=== PATIENT | male | born 1980 | race Caucasian/White ===

== ENCOUNTER → 2023-07-14 | Outpatient (CLI) | payer OTHER ==
[~2023-07-14] MED LIST: AIMOVIG AU70 MG/1 M1 SQ; CYMBALTA 30MG30 MG PO; IMITREX50 MG PO; NO HOME MEDICATIONS; NORCO 325 MG-51 TAB PO; ROXICODONE 55 MG/TAB PO
== END ==
LOC: MHCPAIN 10:15
DX: M54.16 Radiculopathy, lumbar region (principal)

== ENCOUNTER 2023-08-31 08:00 | Outpatient (RCR) | payer OTHER | END 2023-09-04 | disposition home or self-care (01) | LOC: PT.GENESIS | DX: M25.561 Pain in right knee (principal); Z98.890 Other specified postprocedural states ==

== ENCOUNTER 2023-09-28 08:00 | Outpatient (RCR) | payer OTHER | END 2023-10-05 | disposition home or self-care (01) | LOC: PT.GENESIS | DX: M25.561 Pain in right knee (principal); Z98.890 Other specified postprocedural states ==

== ENCOUNTER → 2023-10-20 | Outpatient (CLI) | payer OTHER | LOC: MHCPAIN 07:58 | DX: M47.817 Spondylosis without myelopathy or radiculopathy, lumbosacral region (principal); M54.50 Low back pain, unspecified | CPT/HCPCS: J0665 ==

== ENCOUNTER → 2023-10-24 | Outpatient (CLI) | payer OTHER | LOC: MHCPAIN 10:00 | DX: M47.816 Spondylosis without myelopathy or radiculopathy, lumbar region (principal); M51.26 Other intervertebral disc displacement, lumbar region | CPT/HCPCS: G0463 ==

== ENCOUNTER 2023-10-26 08:00 | Outpatient (RCR) | payer OTHER | END 2023-11-05 | disposition home or self-care (01) | LOC: PT.GENESIS | DX: M76.891 Other specified enthesopathies of right lower limb, excluding foot (principal); S83.241D Other tear of medial meniscus, current injury, right knee, subsequent encounter; Z98.890 Other specified postprocedural states ==

== ENCOUNTER 2023-11-30 11:00 | Outpatient (RCR) | payer OTHER | END 2023-12-05 | disposition home or self-care (01) | LOC: PT.GENESIS | DX: M25.561 Pain in right knee (principal); Z98.890 Other specified postprocedural states ==

== ENCOUNTER → 2023-12-01 | Outpatient (CLI) | payer OTHER ==
[~2023-12-01] MED LIST changes: +Atropine 1 MG/10 ML SYRINGE IV ONE; +Glycopyrrolate 0.2 MG/ML 1 ML VIAL ONE; +Lidocaine PF 2% (20 MG/ML) 5 ML VIAL ONE; +Midazolam 2 MG/2 ML VIAL ONE; +ePHEDrine 50 MG/10 ML VIAL IV ONE; +fentaNYL 50 MCG/ML 2 ML VIAL ONE
== END ==
LOC: MHCPAIN 07:32
DX: M47.817 Spondylosis without myelopathy or radiculopathy, lumbosacral region (principal); M54.50 Low back pain, unspecified
CPT/HCPCS: J0461; J0665; J2250; J3010

== ENCOUNTER → 2024-02-01 | Outpatient (CLI) | payer OTHER ==
[~2024-02-01] MED LIST changes: -Atropine 1 MG/10 ML SYRINGE IV ONE; -Glycopyrrolate 0.2 MG/ML 1 ML VIAL ONE; -Lidocaine PF 2% (20 MG/ML) 5 ML VIAL ONE; -Midazolam 2 MG/2 ML VIAL ONE; -ePHEDrine 50 MG/10 ML VIAL IV ONE; -fentaNYL 50 MCG/ML 2 ML VIAL ONE
== END ==
LOC: MHCPAIN 14:25
DX: M54.16 Radiculopathy, lumbar region (principal); M54.50 Low back pain, unspecified; M51.26 Other intervertebral disc displacement, lumbar region; M47.816 Spondylosis without myelopathy or radiculopathy, lumbar region
CPT/HCPCS: G0463